=== PATIENT | male | born 1975 | race Two or more races ===

== ENCOUNTER 2017-08-19 16:08 | Emergency (ER) | payer MEDICAID ==
[~2017-08-19] VITALS: Ht 175.3 cm; Wt 70.3 kg
[2017-08-19 16:37] VITALS: BP 125/85
[2017-08-19] MEDS ORDERED: IBUPROFEN 600 MG TAB PO ONE (19:45)
== END 2017-08-19 19:43 | disposition home or self-care (01) ==
LOC: ER 16:08
DX: S90.32XA Contusion of left foot, initial encounter (principal); F17.210 Nicotine dependence, cigarettes, uncomplicated; X58.XXXA Exposure to other specified factors, initial encounter; Y93.9 Activity, unspecified; Y92.89 Other specified places as the place of occurrence of the external cause; Y99.8 Other external cause status
CPT/HCPCS: 73630; 99284; L3260